=== PATIENT | male | born 1970 ===

== ENCOUNTER 2023-05-31 22:51 | Emergency (ER) | payer MEDICAID, SELFPAY ==
[2023-05-31 22:52] VITALS: BP 155/106; PULSE 114; RESP 20; TEMP 37.2; O2SAT 93; BMI 28.1
[2023-06-01 02:17] VITALS: BP 146/95; PULSE 68; RESP 18; O2SAT 95
--- NOTE | 2023-06-01 02:36 | ED_ITS ---
HPI - Back Pain/Injury General Chief Complaint: Back Pain/Injury Stated Complaint: Back pain Time Seen by Provider: 06/01/23 02:11 Source: patient Mode of arrival: ambulatory Limitations: no limitations History of Present Illness HPI Narrative: homeless back pain from carrying his belongings no thinners, no b/b incontinence no saddle anesthesia started last few days MD elicited complaint: back pain Pertinent past history: prior back pain Onset (ago): day(s) (3) Timing: intermittent Severity: moderate Similar Symptoms Previously: Yes Quality: dull and throbbing Location: lumbar spine Radiation: none Exacerbating factors: movement and walking Relieving factors: none Context: while lifting Associated symptoms: denies other symptoms Work related injury: No Related Data Previous Rx's Medication Instructions Recorded cyclobenzaprine 10 mg tablet 10 mg PO TID PRN muscle spasm #14 06/01/23 tabs lidocaine 4 % topical patch 1 patch topical DAILY PRN pain #10 06/01/23 ea Allergies Allergy/AdvReac Type Severity Reaction Status Date / Time No Known Allergies Allergy Verified 05/31/23 22:57 Review of Systems Review of Systems: Constitutional : No Weight loss, No Fever, No Chills, ENT/Mouth : No Hearing loss, No Ear Pain, No Nasal Congestion, No Sinus Pain, No Hoarseness, No sore throat, No Rhinorrhea, No Swallowing Difficulty Cardiovascular : No Chest Pain, No SOB Respiratory : No Cough, No Dyspnea Gastrointestinal : No Nausea, No Vomiting, No Diarrhea, No abdominal Pain, No Hematochezia, No Melena Genitourinary : No Dysuria, No Urinary Frequency, No Hematuria, No Urinary Incontinence, Musculoskeletal : positive back pain Skin : No Skin Lesions, No rash Neuro : No Weakness, No Numbness, No Paresthesias, no loss of bowel or bladder incontinence, no saddle anesthesia PMFSH Past Medical History Attestation statement: The following information was validated with the patient. Medical History (Updated 06/01/23 @ 02:56 by Michelle Palmer DO) Chronic back pain Social History Social History Alcohol intake: never Smoked in Last 30 Days: Yes Use of substances other than those prescribed or required for medical reasons: No Advance Directives: No Advance Directives Information Provided: No Physical Exam Vital Signs: Vital Signs: Last Vital Signs Temp 98.9 F 05/31/23 22:52 Pulse 68 06/01/23 02:17 Resp 18 06/01/23 02:17 BP 146/95 H 06/01/23 02:17 Pulse Ox 95 06/01/23 02:17 O2 Del Method Room Air 06/01/23 02:17 BMI result Body Mass Index 28.1 Appearance: Alert. Oriented X3. No acute distress. Eyes: Pupils equal, round and reactive to light. ENT: Pharynx normal. Neck: Normal inspection. Neck supple. CVS: Normal heart rate and rhythm. Pulses normal. Respiratory: No respiratory distress. Breath sounds normal. Abdomen: Soft and nontender. Skin: Skin warm and dry. Normal skin color. Normal skin turgor. Extremities: No lower extremity edema. No calf ttp Back: ttp along lumbar paraspinal muscles Neuro: Oriented X 3. No motor deficit. No sensory deficit. Medical Decision Making Medical Decision Making MDM Narrative: 53 yo male with low back pain from carting around his belongings - he has no b/b incontinence or saddle anesthesia no fevers he is distal NV intact and not toxic he has a whole cart of belongings no midline ttp or percussion it is along the muscles he has no place to stay and has to carry all of his bags - will provide meds and DC home plans to stay at [facility]. doubt CE , fracture, epidural abscess Differential Diagnosis Differential Diagnoses: The differential diagnosis associated with the presentation includes lumbar strain, sprain, overuse Tests considered The following testing was considered but not selected: doubt fracture no need for lumbar xray Prescription Management I considered prescription management with: Other (flexeril and lidocaine patch) Social Determinants Patient?s care significantly limited by Social Determinants of Health including: Inadequate housing Discharge Plan Discharge Clinical Impression: Strain of lumbar region Patient Disposition: Home, Self-Care Instructions: Low Back Strain (ED) Additional Instructions: return for numbness, weakness, loss of control of bowel or bladder, fevers or any other concerns. Prescriptions: New cyclobenzaprine 10 mg tablet 10 mg PO TID PRN (Reason: muscle spasm) Qty: 14 0RF lidocaine 4 % adhesive patch,medicated 1 patch topical DAILY PRN (Reason: pain) Qty: 10 0RF Rx Instructions: may leave on for up to 12 hrs
[2023-06-01] MEDS: Cyclobenzaprine HCl 10 MG TABLET PO (03:06)
[2023-06-01] MEDS: Lidocaine 4 % Patch ADH..PATCH 2 PATCH TRANSDERMA (03:06)
== END 2023-06-01 03:11 | disposition home or self-care (01) ==
PROVIDERS: Emergency Provider Emergency Medicine
DX: M54.50 Low back pain, unspecified (principal)
CPT/HCPCS: 99283; 99284